=== PATIENT | male | born 1950 | race Caucasian/White ===

== ENCOUNTER 2025-01-07 11:03 | Day surgery (SDC) | payer MEDICARE, BC ==
[2025-01-06 10:45] LABS: MEAN PLATELET VOLUME 9.7 FL (7.4-10.4); RED CELL DISTRIBUTION WIDTH 12.7 % (11.5-14.5)
[2025-01-06 11:02] LABS: APTT 24 SECONDS (22-32); INR 1.0 INR
[2025-01-06 11:04] LABS: CHOL/HDL RATIO 3.6 (0.00-4.99); CREATININE 1.43 MG/DL (0.60-1.10); LDL CHOLESTEROL 141 MG/DL (50-100); TOTAL CARBON DIOXIDE 30.0 MMOL/L (24-32); eGFR 48 ML/MIN
[2025-01-06 11:51] LABS: EOSINOPHILS % (MANUAL) 7.0 % (0-6); LYMPHOCYTES % (MANUAL) 25.0 % (21-51); MONOCYTES % (MANUAL) 14.0 % (2-12); NEUTROPHILS % (MANUAL) 54.0 % (42-75); PLATELET ESTIMATE NORMAL
[~2025-01-07] VITALS: Ht 182.9 cm; Wt 79.0 kg
[2025-01-07] VITALS (9 sets, daily range): BP systolic 104–147; BP diastolic 51–74; PULSE 60–93; RESP 11–16; TEMP 98.3; O2SAT 95–100
--- NOTE | 2025-01-07 11:49 | ELECTROCARDIOGRAPH REPORT ---
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 MAY Giraldo Measurements Intervals [place] Rate: 80 P: 74 GA: 166 QRS: 91 QRSD: 101 T: 22 QT: 380 QTc: 439 Interpretive Statements Sinus rhythm Right axis deviation RSR' in V1 or V2, probably normal variant Minimal ST depression, inferior leads Electronically Signed On 01-07-2025 12:59:[address] MAY Giraldo Please click the below link to view image of tracing.
[2025-01-07] MEDS ORDERED: ASPI-280 PO (11:52)
[2025-01-07] MEDS ORDERED: METO25TA6 PO (11:52)
[2025-01-07] MEDS ORDERED: ALBU18HF2 INH (11:52)
[2025-01-07] MEDS ORDERED: verapamil 2.5 mg/ml inj IV ONE (13:24)
[2025-01-07] MEDS ORDERED: LIDOcaine 1% (10mg/ml) 2ml vial ONE (13:24)
[2025-01-07] MEDS ORDERED: heparin 1,000unit/ml 10ml vial 10 ML ONE (13:24)
[2025-01-07] MEDS ORDERED: midazolam 1 mg/ML 2ml injection ONE (13:24)
[2025-01-07] MEDS ORDERED: fentaNYL/PF 50MCG/1 ML 2ML syringe ONE (13:24)
[2025-01-07] MEDS ORDERED: nitroGLYCERIN 500mcg/5mL D5W 5 ML IV ONE (13:29)
[2025-01-07] MEDS ORDERED: HYDROcodone/acetaminophen 10/325mg tab PO PRN (14:45)
[2025-01-07] MEDS ORDERED: HYDROcodone/acetaminophen 5mg/325mg tablet PO PRN (14:45)
--- NOTE | 2025-01-07 15:09 | CARDIAC CATH REPORT ---
Cardiac Cath Report Providers to CC CC: EMILIA FERNANDO MD Procedure Comments: 1. Left Heart Catheterization 2. Selective Coronary Angiography 3. Right Radial Artery Access Brief History/Indications: 74yo man with HTN, HLD, Moderate Aortic Stenosis with increased episodes of CP/SOB, found to have inferior ischemia referred for evaluation. Techniques: After informed consent was obtained, the patient was brought to the cardiac catheterization laboratory and prepped and draped in usual sterile fashion for left heart catheterization and other procedures mentioned above. The right wrist was anesthetized with 1% Lidocaine and the right radial artery accessed via the Seldinger technique after which a 6Fr sheath was placed. Through this a TIG was used to engage the left ventricle, the left coronary artery, and the right coronary artery. At the conclusion of the case the sheath was removed and hemostasis obtained with a VascBand. Findings Findings: HEMODYNAMICS: LV: 148/- mmHg LVEDP: 8 mmHg Ao: 112/67, MAP 85 mmHg CORONARY ARTERIES: Rt Dominant LMCA: Distal 30% stenosis LAD: 80% mid-LAD stenosis. D1: 95% mid stenosis D2: 90% ostial stenosis LCx: 30% stenosis OM1: 80% mid stenosis RCA: 60% proximal stenosis, 95% mid-distal stenosis. Distal vessel fills antegrade and via Lt-Rt collaterals PDA: Luminal Irregularities PL: Luminal Irregularities Results Results: 1. Severe [place]-vessel CAD with 80% mid LAD, D1/D2, OM1, and RCA Disease. 2. Moderate aortic stenosis, peak-peak gradient of 36mmHg 3. RRA Access, closed with VascBand RECOMMENDATIONS: 1. CT Surgery consultation given multi-vessel CAD with moderate aortic stenosis 2. Recommend uptitration of max-tolerated GDMT OZZY FERNANDO MD Jan 07, 2025 15:09
--- NOTE | 2025-01-07 16:41 | CONSULTATION REPORT ---
Consult Providers to CC ~ History of Present Illness Primary Medical Doctor: Dr. Fox oDbson Reason for Admit\Complaint: Aortic stenosis with severe three-vessel coronary disease History of Present Illness Mr. Medina is a very nice 74-year-old gentleman who has noticed a several year history of increasing fatigue as well as some exertional dyspnea. He has a history of pulmonary disease which she attributed the symptoms. He however was noted by his primary care physician have a relatively harsh systolic flow murmur. He was evaluated with echocardiography which showed moderately severe aortic stenosis. Subsequent stress testing revealed an inferior defect. He therefore underwent left heart catheterization today. This revealed severe three-vessel coronary disease including 80% mid LAD, significant proximal diagonal disease an 80% obtuse marginal as well as a 95% mid RCA lesion. This factors include hyperlipidemia. He is a nonsmoker and has no history of diabetes. No family history of premature atherosclerosis. Allergies: Coded Allergies: No Known Allergies (Unverified , 01/07/25) Home Medications Home Medications Active Reported Metoprolol Tartrate 25 Mg Tablet 1 Tab PO Q12H Ventolin Hfa (Albuterol Sulfate) 90 Mcg Hfa.aer.ad 1 Puffs INH Q4HPRN PRN Aspirin 81 Mg Tab.chew 1 Tab PO DAILY Past Medical History Past Medical History Be admitted for COPD grade 3 chronic kidney disease thrombocytopenia as well as neutropenia. ROS ROS Generally he has some malaise but denies anorexia, jaundice, pruritus, fever, chills or weight loss. GI has had no nausea or vomiting, diarrhea, constipation, melena or bright red per rectum. he denies dysuria, pyuria, hematuria, urgency, hesitancy or frequency. Neuromuscular denies frequent or severe headaches. He has had no change in his visual thurman. He denies difficulty with speech, swallowing, ambulation or coordination. Cardiopulmonary is as noted in the history present illness. Exam Vitals: Vital Signs Date Time Temp Pulse Resp B/P (MAP) Pulse Ox O2 Delivery O2 Flow Rate FiO2 01/07/25 15:30 61 12 106/53 98 Room Air 01/07/25 11:30 98.3 General: Very pleasant gentleman who appears to be younger than his stated age. He is in no distress. HEENT: Normocephalic and atraumatic. Pupils round and reactive to light. Dentition is in good repair. No facial asymmetry. Neck: Supple with a midline trachea. Carotid pulses 2+ with bilaterally transmitted murmurs. No JVD lying at 30 Chest: Normal AP diameter. Occasional dry crackles at the bases. Good expansion bilaterally. No wheezing. Cardiovascular: Regular rate and rhythm with a grade 3/6 somewhat high-pitched systolic flow murmur at the left sternal border. S2 is single. No rubs present Abdomen: Soft nontender normoactive bowel sounds. No masses or organomegaly noted. Murmur heard in the epigastrium. Extremities: No evidence of cyanosis, clubbing or edema. 2+ left radial and posterior tibials bilaterally. Right radial with compression dressing. Adequate capillary refill in the hands and feet bilaterally. Diagnostic Data Last Recorded Lab Results: 01/06/25 1035 01/06/25 1035 Diagnostic Data: Laboratory Tests Test 01/06/25 10:35 Prothrombin Time 10.6 SECONDS (9.0-12.0) INR International Normalized Ratio 1.0 INR Activated Partial Thromboplast Time 24 SECONDS (22-32) Coagulation Comments Additional Plan Mr. Medina is a very nice 74-year-old gentleman who has significant aortic stenosis as well as severe three-vessel coronary disease. We have recommended that he undergo coronary artery bypass grafting and aortic valve replacement with a bioprosthesis. The indications alternatives to surgery as well as the risks, benefits and possible complications associated have been discussed at some length with the patient. He states he understands and accepts these and requested that we proceed. All of his questions have been answered to his stated satisfaction. We would like to obtain preoperative CT scanning as well as pulmonary function tests. We will tentatively plan surgery for mid January. ADINA TABARES III, MD Jan 07, 2025 16:41
== END 2025-01-07 17:24 | disposition home or self-care (01) ==
LOC: SSTAY O 11:03
PROVIDERS: ATTEND Student in an Organized Health Care Education/Training Program
DX: I35.0 Nonrheumatic aortic (valve) stenosis (principal); I25.10 Atherosclerotic heart disease of native coronary artery without angina pectoris; E78.00 Pure hypercholesterolemia, unspecified; N18.30 Chronic kidney disease, stage 3 unspecified; J44.9 Chronic obstructive pulmonary disease, unspecified; Z79.82 Long term (current) use of aspirin; Z79.899 Other long term (current) drug therapy; Z88.8 Allergy status to other drugs, medicaments and biological substances
CPT/HCPCS: 36415; 80048; 80061; 85025; 85610; 85730; 93005; 93458; 99152; A6258; A6402; C1894; J1644; J2003; J2250; J3010; J3490; J7030; Q0163; Q9967; Z7610; 85007; 99153; A6449

== ENCOUNTER 2025-02-04 05:31 | Inpatient (IN) | payer MEDICARE, BC ==
--- NOTE | 2025-01-31 14:33 | ELECTROCARDIOGRAPH REPORT ---
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 MAY Giraldo Measurements Intervals [place] Rate: 83 P: 74 MN: 161 QRS: 90 QRSD: 102 T: 43 QT: 361 QTc: 425 Interpretive Statements Sinus rhythm Probable left atrial enlargement Borderline right axis deviation RSR' in V1 or V2, probably normal variant Borderline ST depression, diffuse leads Electronically Signed On 01-31-2025 17:40:[address] MAY Giraldo Please click the below link to view image of tracing.
[2025-01-31 15:27] LABS: LEUKOCYTE ESTERASE ,URINE NEGATIVE (Neg); NITRITES, URINE NEGATIVE (Neg); OCCULT BLOOD,URINE NEGATIVE (Neg)
[2025-01-31 15:33] LABS: UA COLLECTION TYPE NON-SPECIFIED
[2025-01-31 15:34] LABS: AMORPHOUS PHOSPHATES 2+
[2025-01-31 15:35] LABS: SQUAMOUS EPITHELIAL CELL,UR FEW /LPF (FEW)
[2025-01-31 16:07] LABS: MEAN PLATELET VOLUME 10.1 FL (7.4-10.4); PRE OP HEMATOCRIT 40.8 % (42.0-52.0); PRE OP HEMOGLOBIN 14.0 g/dL (14.0-17.9); PRE OP PLATELET COUNT 148 X10'3 (140-440); PRE OP WHITE BLOOD COUNT 6.8 10'3 (4.8-10.8); RED CELL DISTRIBUTION WIDTH 13.0 % (11.5-14.5)
[2025-01-31 16:24] LABS: PRE OP INR 1.0 INR; PRE OP PARTIAL THROMB. TIME 24.0 SECONDS (22-32); PRE OP PROTIME 10.3 SECONDS (9.0-12.0)
[2025-01-31 16:25] LABS: CREATININE 1.45 MG/DL (0.60-1.10); PRE OP ANION GAP 5 (8-16); PRE OP AST 54 U/L (10-37); PRE OP BILIRUB, TOTAL 0.4 MG/DL (0.0-1.0); PRE OP GLUCOSE 103 MG/DL (70-104); PRE OP POTASSIUM 4.3 MMOL/L (3.4-5.1); PRE OP SODIUM 142 MMOL/L (135-145); TOTAL CARBON DIOXIDE 29.8 MMOL/L (24-32); eGFR 47 ML/MIN
[2025-01-31 16:36] LABS: PRE OP ALT 103 U/L (30-65)
--- NOTE | 2025-01-31 18:06 | VASCULAR REPORT ---
CLINICAL HISTORY: Greater saphenous vein mapping preoperative CABG TECHNIQUE: Color and duplex doppler imaging of the bilateral lower extremity greater saphenous veins was performed. Vessel compression if possible was also performed. WID: COMPARISON: None FINDINGS: Right greater saphenous vein: Referral nonocclusive thrombus in the mid calf greater saphenous vein. Proximal thigh: 2.8 mm Mid thigh: 2.1 mm Distal thigh: 2.1 mm Proximal Calf: 1.8 mm Mid calf: 1.8 mm Distal calf: 1.8 mm Left greater saphenous vein: Proximal thigh: 2.6 mm Mid thigh: 2.6 mm Distal thigh: 2.1 mm Proximal Calf: 1.7 mm Mid calf: 1.9 mm Distal calf: 1.7 mm IMPRESSION: 1. Chronic nonocclusive peripheral thrombus in the mid calf greater saphenous vein on the right. 2. Otherwise patent bilateral greater saphenous veins, mapped and measured as above. 3. Of note small caliber of the greater saphenous veins in the bilateral calves, measuring less than 2 mm.
--- NOTE | 2025-01-31 18:08 | VASCULAR REPORT ---
INDICATION: Preoperative TECHNIQUE: Real-time ultrasound images of the neck vessels with cota-scale, color and wave Doppler were obtained. COMPARISON: None FINDINGS: There is moderate atherosclerotic plaque bilaterally. The following peak systolic velocities were recorded in cm/sec: Right internal carotid: 144 Right common carotid: 139 Right external carotid: 137 Right internal/common carotid ratio: 1.2 Left internal carotid: 189 Left common carotid: 173 Left external carotid: 148 Left internal/common carotid ratio: 1.4 Right vertebral artery: Patent with normal antegrade direction of flow. Left vertebral artery: Patent with normal antegrade direction of flow. IMPRESSION: Approximately 50-69% stenosis of the bilateral internal carotid arteries by velocity criteria. This is more pronounced in the left internal carotid artery.
--- NOTE | 2025-01-31 20:32 | RADIOLOGY REPORT ---
EXAM: DI CHEST,TWO VIEWS CLINICAL HISTORY: PREOP TECHNIQUE: PA and lateral views of the chest WID: COMPARISON: None FINDINGS: Lines and tubes: None Chest: The heart size and pulmonary vasculature is within normal limits. No pleural effusion, pneumothorax, or consolidation. Biapical pleural- parenchymal scarring. The osseous structures are grossly intact. IMPRESSION: 1. No acute cardiopulmonary abnormality.
[2025-02-01 14:37] LABS: ABG BASE EXCESS 2.8 mmol/L (-2.0-3.0); ABG HCO3 26.9 mmol/L (21.0-28.0); ABG OXYGEN SATURATION 98.0 % (94.0-98.0); ABG PCO2 (T) 39.4 mmHg (35.0-48.0); ABG PH (T) 7.452 (7.350-7.450); ABG PO2 (T) 94.0 mmHg (83.0-108.0); ALLEN'S TEST POSITIVE; FCOHb 1.0 % (0.5-1.5); FHHb 2.0 % (0.0-5.0); FIO2 21.0 mmHg/%; FMetHb 0.3 % (0.0-1.5); FO2Hb 96.7 % (94.0-98.0); MODE ROOM AIR; PATIENT TEMPERATURE 37.0; TOTAL HEMOGLOBIN 14.0 G/dl (13.5-17.5)
--- NOTE | 2025-02-02 11:45 | PROCEDURE NOTE - Respiratory ---
Procedure Note-Respiratory Providers to CC Copies To 1: ADINA TABARES III, MD Procedure Name: This is a spirometry study dated January 31, 2025. There was also a room air blood gas obtained from this patient on the same date. Spirometry measurements: Both the forced vital capacity and the FEV1 are in the normal range. The FEV1 ratio is slightly diminished. Some of the flow rate measurements are borderline diminished. Bronchodilator was not administered as part of the study. Overall conclusion: Normal or very near normal screening spirometry. We have no previous studies for comparison. A blood gas was drawn from this patient while the patient was breathing ambient air. The blood pH is normal. The pCO2 is normal. The room air PO2 is normal at 94 mmHg. KAMILLA RIVERS MD Feb 02, 2025 11:45
[2025-02-04] VITALS (23 sets, daily range): BP systolic 80–154; BP diastolic 36–81; PULSE 67–99; RESP 8–28; TEMP 97.8–97.9; O2SAT 96–100
[~2025-02-04] VITALS: Ht 182.9 cm; Wt 78.5 kg
[~2025-02-04 05:31] MED LIST: ALBU18HF2 INH; Insulin Reg/NS 100units/100mL 100 ML IV SCH; METO25TA6 PO; MULT-1085 PO; albuterol 2.5 MG/3 ML nebule NEB PRN; dextrose 50%-water 50ml dispensing syringe IV PRN; insulin glargine (Lantus) pen - multi-dose SQ PRN; midazolam 1 mg/ML 2ml injection IV PRN
[2025-02-04] MEDS: metoprolol tartrate 12.5mg (1/2 tablet) PO ONE (06:00)
[2025-02-04] MEDS: VANCOMYCIN/H2O 1.5g/300mL PB 300 ML IV ONE (06:00)
[2025-02-04] MEDS: ringers solution, lacted 1,000 ML IV SCH (06:00)
[2025-02-04] MEDS: ceFAZolin 2gm/dext,iso 50mL 50 ML IV ONE (06:01)
[2025-02-04] MEDS: mupirocin 2% nasal ointment 1gm UD NS ONE (06:02)
[2025-02-04] MEDS: DOCUMENT DATE & TIME OF BETA-BLOCKER PO ONE (06:29)
[2025-02-04] MEDS ORDERED: vancomycin 1,000mg inj ONE (07:01)
[2025-02-04] MEDS ORDERED: heparin 10,000 units/1 ML INJ ONE ×2 (07:01→08:51)
[2025-02-04] MEDS ORDERED: BUPIVAcaine 0.5% inj/PF 30 ML ONE (07:02)
[2025-02-04] MEDS ORDERED: SUfentanil 50mcg/ml 1ml amp IV ONE (08:06)
[2025-02-04] MEDS ORDERED: rocuronium 10mg/ml inj IV ONE ×2 (08:08→12:12)
[2025-02-04] MEDS ORDERED: albuterol 2.5 MG/3 ML nebule NEB PRN (08:15)
[2025-02-04] MEDS ORDERED: midazolam 1 mg/ML 2ml injection ONE (08:16)
[2025-02-04] MEDS ORDERED: LIDOcaine 2% (20mg/ml) 5ml vial ONE (08:35)
[2025-02-04] MEDS ORDERED: propofol inj 20 ML IV ONE (08:35)
[2025-02-04 08:44] LABS: ABG BASE EXCESS -1.1 mmol/L (-2.0-3.0); ABG HCO3 22.7 mmol/L (21.0-28.0); ABG OXYGEN SATURATION 99.2 % (94.0-98.0); ABG PCO2 35.2 mmHg (35.0-48.0); ABG PH 7.428 (7.350-7.450); ABG PO2 269.2 mmHg (83.0-108.0); CL (ABG) 106 mmol/L (98-107); FCOHb 0.3 % (0.5-1.5); FHHb 0.8 % (0.0-5.0); FMetHb 0.2 % (0.0-1.5); FO2Hb 98.7 % (94.0-98.0); GLUCOSE (ABG) 107 mg/dl (65-95); IONIZED CA (ABG) 1.15 mmol/L (1.15-1.33); K (ABG) 4.5 mmol/L (3.40-4.50); TOTAL HEMOGLOBIN 12.5 G/dl (13.5-17.5)
[2025-02-04] MEDS ORDERED: mannitol 12.5gm/50mL VIAL IV ONE (08:51)
[2025-02-04] MEDS ORDERED: heparin 1,000 units/ml 10ml inj ONE (08:51)
[2025-02-04] MEDS ORDERED: calcium chloride 100 MG/1 ML inj IV ONE (08:51)
[2025-02-04] MEDS ORDERED: sodium bicarbonate (8.4%) 1 mEq/ml syringe ONE (08:51)
[2025-02-04] MEDS ORDERED: MAGNESIUM SULFATE 4 MEQ/ML (5gm/10ml) injection ONE (08:51)
[2025-02-04] MEDS ORDERED: NORepinephrine 1 mg/ml inj IV ONE (08:51)
[2025-02-04] MEDS ORDERED: potassium Cl 2 mEq/ml inj IV ONE (08:51)
[2025-02-04] MEDS ORDERED: methylPREDNISolone sod succ 1,000 MG/16 ML VIAL ONE (08:51)
[2025-02-04] MEDS ORDERED: DOBUTamine/D5W 500mg/250ml premix IV ONE (08:51)
[2025-02-04] MEDS ORDERED: aminocaproic acid 250 MG/1 ML inj. ONE (08:51)
[2025-02-04] MEDS ORDERED: nitroGLYCERIN in D5W 50mg/250ml (Tridil) infusion IV ONE (08:51)
[2025-02-04] MEDS ORDERED: LIDOcaine 2% (20 mg/ml) 5ml cardiac syringe ONE (08:51)
[2025-02-04] MEDS ORDERED: albumin (human) 25% 100 ML IV solution IV ONE (08:51)
[2025-02-04] MEDS ORDERED: isoflurane 100ml inhalation liquid IH ONE (08:51)
[2025-02-04 09:40] LABS: ABG BASE EXCESS -3.7 mmol/L (-2.0-3.0); ABG HCO3 20.6 mmol/L (21.0-28.0); ABG OXYGEN SATURATION 99.3 % (94.0-98.0); ABG PCO2 34.7 mmHg (35.0-48.0); ABG PH 7.391 (7.350-7.450); ABG PO2 263.1 mmHg (83.0-108.0); CL (ABG) 105 mmol/L (98-107); FCOHb 0.0 % (0.5-1.5); FHHb 0.7 % (0.0-5.0); FMetHb 0.1 % (0.0-1.5); FO2Hb 99.2 % (94.0-98.0); GLUCOSE (ABG) 110 mg/dl (65-95); IONIZED CA (ABG) 1.13 mmol/L (1.15-1.33); K (ABG) 4.9 mmol/L (3.40-4.50); TOTAL HEMOGLOBIN 12.0 G/dl (13.5-17.5)
[2025-02-04 09:48] LABS: ACTIVATED CLOTTING TIME 554.0 SEC (101-148)
[2025-02-04 09:56] LABS: ABG BASE EXCESS VENOUS -0.1 mmol/L (-2.0-3.0); ABG HCO3 VENOUS 24.6 mmol/L (22.0-29.0); ABG OXYGEN SATURATION VENOUS 74.0 % (60.0-85.0); ABG PCO2 VENOUS 39.9 mmHg (38.0-54.0); ABG PH (VENOUS) 7.407 (7.320-7.430); ABG PO2 VENOUS 36.3 mmHg (23.0-48.0); CL (ABG) 100 mmol/L (98-107); FCOHb VENOUS 0.3 % (0.5-1.5); FHHb VENOUS 25.8 %; FMetHb VENOUS 0.3 % (0.5-1.5); FO2Hb VENOUS 73.6 % (0-80.0); GLUCOSE (ABG) 99 mg/dl (65-95); IONIZED CA (ABG) 0.87 mmol/L (1.15-1.33); K (ABG) 4.9 mmol/L (3.40-4.50); TOTAL HEMOGLOBIN 7.7 G/dl (13.5-17.5)
[2025-02-04 09:59] LABS: ABG BASE EXCESS -0.1 mmol/L (-2.0-3.0); ABG HCO3 23.9 mmol/L (21.0-28.0); ABG OXYGEN SATURATION 99.2 % (94.0-98.0); ABG PCO2 35.9 mmHg (35.0-48.0); ABG PH 7.442 (7.350-7.450); CL (ABG) 101 mmol/L (98-107); FCOHb 0.2 % (0.5-1.5); FHHb 0.8 % (0.0-5.0); FMetHb 0.3 % (0.0-1.5); FO2Hb 98.7 % (94.0-98.0); GLUCOSE (ABG) 101 mg/dl (65-95); IONIZED CA (ABG) 0.91 mmol/L (1.15-1.33); K (ABG) 5.0 mmol/L (3.40-4.50); TOTAL HEMOGLOBIN 7.8 G/dl (13.5-17.5)
[2025-02-04 10:31] LABS: ABG BASE EXCESS -1.3 mmol/L (-2.0-3.0); ABG HCO3 23.0 mmol/L (21.0-28.0); ABG OXYGEN SATURATION 99.1 % (94.0-98.0); ABG PCO2 36.8 mmHg (35.0-48.0); ABG PH 7.414 (7.350-7.450); CL (ABG) 103 mmol/L (98-107); FCOHb 0.3 % (0.5-1.5); FHHb 0.9 % (0.0-5.0); FMetHb 0.0 % (0.0-1.5); FO2Hb 98.8 % (94.0-98.0); GLUCOSE (ABG) 98 mg/dl (65-95); IONIZED CA (ABG) 1.01 mmol/L (1.15-1.33); K (ABG) 5.6 mmol/L (3.40-4.50); TOTAL HEMOGLOBIN 9.3 G/dl (13.5-17.5)
[2025-02-04 10:53] LABS: ABG BASE EXCESS -1.5 mmol/L (-2.0-3.0); ABG HCO3 22.8 mmol/L (21.0-28.0); ABG OXYGEN SATURATION 99.3 % (94.0-98.0); ABG PCO2 36.5 mmHg (35.0-48.0); ABG PH 7.413 (7.350-7.450); CL (ABG) 103 mmol/L (98-107); FCOHb 0.3 % (0.5-1.5); FHHb 0.7 % (0.0-5.0); FMetHb 0.0 % (0.0-1.5); FO2Hb 99.0 % (94.0-98.0); GLUCOSE (ABG) 98 mg/dl (65-95); IONIZED CA (ABG) 1.01 mmol/L (1.15-1.33); TOTAL HEMOGLOBIN 9.0 G/dl (13.5-17.5)
[2025-02-04 11:04] LABS: ACTIVATED CLOTTING TIME 584.0 SEC (101-148)
[2025-02-04 11:12] LABS: ABG BASE EXCESS 0.6 mmol/L (-2.0-3.0); ABG HCO3 24.7 mmol/L (21.0-28.0); ABG OXYGEN SATURATION 99.2 % (94.0-98.0); ABG PCO2 37.6 mmHg (35.0-48.0); ABG PH 7.436 (7.350-7.450); CL (ABG) 101 mmol/L (98-107); FCOHb 0.3 % (0.5-1.5); FHHb 0.8 % (0.0-5.0); FMetHb 0.1 % (0.0-1.5); FO2Hb 98.8 % (94.0-98.0); GLUCOSE (ABG) 97 mg/dl (65-95); IONIZED CA (ABG) 0.97 mmol/L (1.15-1.33); K (ABG) 5.9 mmol/L (3.40-4.50); TOTAL HEMOGLOBIN 7.9 G/dl (13.5-17.5)
[2025-02-04 11:27] LABS: ABG BASE EXCESS 0.2 mmol/L (-2.0-3.0); ABG HCO3 25.1 mmol/L (21.0-28.0); ABG OXYGEN SATURATION 99.1 % (94.0-98.0); ABG PCO2 41.4 mmHg (35.0-48.0); ABG PH 7.400 (7.350-7.450); ABG PO2 260.9 mmHg (83.0-108.0); CL (ABG) 103 mmol/L (98-107); FCOHb 0.4 % (0.5-1.5); FHHb 0.9 % (0.0-5.0); FMetHb 0.1 % (0.0-1.5); FO2Hb 98.6 % (94.0-98.0); GLUCOSE (ABG) 110 mg/dl (65-95); IONIZED CA (ABG) 1.00 mmol/L (1.15-1.33); TOTAL HEMOGLOBIN 8.1 G/dl (13.5-17.5)
[2025-02-04 11:33] LABS: ABG BASE EXCESS 4.6 mmol/L (-2.0-3.0); ABG HCO3 28.9 mmol/L (21.0-28.0); ABG OXYGEN SATURATION 99.3 % (94.0-98.0); ABG PCO2 41.5 mmHg (35.0-48.0); ABG PH 7.460 (7.350-7.450); ABG PO2 274.1 mmHg (83.0-108.0); CL (ABG) 103 mmol/L (98-107); FCOHb 0.7 % (0.5-1.5); FHHb 0.7 % (0.0-5.0); FMetHb 0.1 % (0.0-1.5); FO2Hb 98.5 % (94.0-98.0); GLUCOSE (ABG) 107 mg/dl (65-95); IONIZED CA (ABG) 1.35 mmol/L (1.15-1.33); K (ABG) 5.8 mmol/L (3.40-4.50); TOTAL HEMOGLOBIN 7.9 G/dl (13.5-17.5)
[2025-02-04 11:39] LABS: ABG BASE EXCESS 3.2 mmol/L (-2.0-3.0); ABG HCO3 27.7 mmol/L (21.0-28.0); ABG OXYGEN SATURATION 99.4 % (94.0-98.0); ABG PCO2 41.7 mmHg (35.0-48.0); ABG PH 7.440 (7.350-7.450); CL (ABG) 103 mmol/L (98-107); FCOHb 0.6 % (0.5-1.5); FHHb 0.6 % (0.0-5.0); FMetHb 0.2 % (0.0-1.5); FO2Hb 98.6 % (94.0-98.0); GLUCOSE (ABG) 105 mg/dl (65-95); IONIZED CA (ABG) 1.24 mmol/L (1.15-1.33); K (ABG) 5.5 mmol/L (3.40-4.50); TOTAL HEMOGLOBIN 8.0 G/dl (13.5-17.5)
[2025-02-04 11:49] LABS: ACTIVATED CLOTTING TIME 549.0 SEC (101-148)
[2025-02-04 12:05] LABS: ABG BASE EXCESS 0.1 mmol/L (-2.0-3.0); ABG HCO3 24.0 mmol/L (21.0-28.0); ABG OXYGEN SATURATION 99.4 % (94.0-98.0); ABG PCO2 35.3 mmHg (35.0-48.0); ABG PH 7.450 (7.350-7.450); CL (ABG) 103 mmol/L (98-107); FCOHb 0.4 % (0.5-1.5); FHHb 0.6 % (0.0-5.0); FMetHb 0.2 % (0.0-1.5); FO2Hb 98.8 % (94.0-98.0); GLUCOSE (ABG) 183 mg/dl (65-95); IONIZED CA (ABG) 1.15 mmol/L (1.15-1.33); K (ABG) 4.5 mmol/L (3.40-4.50); TOTAL HEMOGLOBIN 7.8 G/dl (13.5-17.5)
[2025-02-04 12:08] LABS: ACTIVATED CLOTTING TIME 122 SEC (101-148)
[2025-02-04] MEDS ORDERED: morphine 10mg/ml inj. ONE (12:12)
[2025-02-04] MEDS ORDERED: dextrose 50%-water 50ml dispensing syringe IV ONE (12:15)
[2025-02-04] MEDS ORDERED: potassium Cl 40MEQ/270ML bag 250 ML IV PRN (12:20)
[2025-02-04] MEDS ORDERED: metoclopramide 5 mg/ml inj IV PRN (12:20)
[2025-02-04] MEDS ORDERED: ondansetron/PF 4mg/2ml inj IV PRN (12:20)
[2025-02-04] MEDS ORDERED: magnesium sulf-water 4G/100mL 100 ML IV PRN (12:20)
[2025-02-04] MEDS ORDERED: potassium Cl 20 mEq SR tablet PO PRN (12:20)
[2025-02-04] MEDS ORDERED: insulin glargine (Lantus) pen - multi-dose SQ PRN (12:20)
[2025-02-04] MEDS ORDERED: niCARDipine-NS 40mg/200ml IVPB 200 ML IV PRN (12:20)
[2025-02-04] MEDS ORDERED: mineral oil 133ml enema RC PRN (12:20)
[2025-02-04] MEDS ORDERED: potassium CL 10mEq/100ml bag 100 ML IV PRN (12:20)
[2025-02-04] MEDS ORDERED: dextrose 50%-water 50ml dispensing syringe IV PRN (12:20)
[2025-02-04] MEDS ORDERED: sodium phos 15mmol/D5 255mL 255 ML IV PRN (12:20)
[2025-02-04] MEDS ORDERED: morphine 4 MG/ML inj SYRINge IV PRN (12:20)
[2025-02-04] MEDS ORDERED: bisacodyl 10mg suppository rectal RC PRN (12:20)
[2025-02-04] MEDS ORDERED: potassium Cl 40MEQ/1/2NS 520ml 520 ML IV PRN (12:20)
[2025-02-04 13:00] LABS: ABG BASE EXCESS 0.2 mmol/L (-2.0-3.0); ABG HCO3 25.2 mmol/L (21.0-28.0); ABG OXYGEN SATURATION 99.6 % (94.0-98.0); ABG PCO2 (T) 41.4 mmHg (35.0-48.0); ABG PH (T) 7.400 (7.350-7.450); ABG PO2 (T) 342.6 mmHg (83.0-108.0); FCOHb 0.5 % (0.5-1.5); FHHb 0.4 % (0.0-5.0); FIO2 80.0 mmHg/%; FMetHb 0.3 % (0.0-1.5); FO2Hb 98.8 % (94.0-98.0); MODE VENT - SIMV; PATIENT TEMPERATURE 36.4; PEEP 5 cm H2O; RESPIRATORY RATE 12 b/min; TIDAL VOLUME 500 mL; TOTAL HEMOGLOBIN 10.7 G/dl (13.5-17.5)
[2025-02-04 13:03] LABS: MEAN PLATELET VOLUME 10.4 FL (7.4-10.4); RED CELL DISTRIBUTION WIDTH 12.8 % (11.5-14.5)
--- NOTE | 2025-02-04 13:03 | ELECTROCARDIOGRAPH REPORT ---
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 MAY Giraldo Measurements Intervals [place] Rate: 71 P: 73 AR: 175 QRS: 102 QRSD: 118 T: 31 QT: 439 QTc: 478 Interpretive Statements Sinus rhythm Nonspecific intraventricular conduction delay Minimal ST depression, inferior leads Electronically Signed On 02-04-2025 20:55:[address] MAY Giraldo Please click the below link to view image of tracing.
--- NOTE | 2025-02-04 13:12 | RADIOLOGY REPORT ---
CHEST RADIOGRAPH Indication: POST OP Technique: Single frontal view of the chest was obtained COMPARISON: DI CHEST,TWO VIEWS on DOS: 01/31/25 FINDINGS: Lines and Tubes: Endotracheal tube, enteric catheter, [place]-Jasmina catheter and right central venous catheter in satisfactory position. Mediastinal drain and left chest tubes in satisfactory position. Lungs: Bibasilar subsegmental atelectasis. Pleura: No effusion. No pneumothorax. Cardiomediastinal contours: Post median sternotomy. Cardiac valve replacement. Bones: Unremarkable IMPRESSION: Lines and tubes in satisfactory position. No significant interval change.
[2025-02-04 13:28] LABS: ABG PO2 420.3 mmHg (83.0-108.0)
[2025-02-04 13:34] LABS: ACT @ 1.70 U 262 SEC (193-297); ACT @ 2.84 U 343 SEC (260-420); BASELINE ACT 131 SEC (101-148); PATIENT WEIGHT 77.0k KG
--- NOTE | 2025-02-04 13:39 | OPERATIVE REPORT ---
Operative Report Operative Report Cardiovascular surgery operative report 04 February 2025 Preoperative diagnosis: Severe aortic stenosis, three-vessel coronary artery disease Postop diagnosis: Same Procedure: Aortic valve replacement with a 23 mm magna pericardial aortic valve prosthesis, coronary artery bypass grafting x3 placing the left internal mammary artery to the LAD with vein grafts to the diagonal and distal right coronary artery Surgeon: Dr. Nacho Aguirre personalized living assistant: Dr. Al Garcia and Eduard Alvarenga PA-C Anesthesia: General via endotracheal tube Complications: None EBL: 200 mL Procedure: The patient is taken to the operating room placed in supine position. Following the induction of general oral endotracheal anesthesia and the placement of appropriate lines the chest, abdomen and bilateral lower extremities were prepped and draped sterilely. A portion of greater saphenous vein was removed endoscopically from the right leg. Side branches were controlled with electrocautery. It was ligated proximally and distally and then excised. Side branches were ligated with 4-0 silk. It was set aside. Careful hemostasis was achieved throughout the tunnel. The incision was closed in two layers with absorbable suture. At the same time a median sternotomy was performed in the left pleural space was widely opened. The left internal mammary artery was dissected free from the anterior chest wall. The patient was systemically heparinized and after 3 minutes the АЛЕКСАНДР was divided the diaphragm, ligating it distally with 0 silk. The pericardium was then opened in midline and suspended. Single aortic and dual stage right atrial cannula placed. After ensuring an ACT of greater than 300 seconds cardiopulmonary bypass was instituted. The distal anastomosis with a bypasses were performed on a beating heart using an epicardial stabilizer facilitate the distal anastomosis. They we re done in end-to-side fashion with running seven 0 Prolene, probing prior to tying the suture line to ensure patency. A slit was cut in the left superior pericardium to allow the АЛЕКСАНДР to lie medial to lung without tension. Diminished urine output the АЛЕКСАНДР was cut to length and distal end was spatulated. It was then anastomosed in end-to-side fashion to the mid LAD. The bulldog clamp was removed from the АЛЕКСАНДР pedicle to restore flow. The pedicle was tacked to the epicardium with interrupted five 0 Prolene sutures. In similar fashion reverse saphenous vein grafts were anastomosed in end-to-side fashion to the diagonal and the distal right coronary artery. The aorta was then crossclamped and the heart was arrested with cold blood [place] cardioplegia delivered antegrade through the root. The aorta was opened transversely well above the right coronary orifice of the valve was inspected. It was tricuspid with significant calcification. The leaflets were then excised and the annulus was debrided free of calcium. The annulus was then sized and a 23 mm magna pericardial aortic valve prosthesis was chosen. This was rinsed per protocol. It was then implanted into the annulus using interrupted horizontal mattress sutures of pledgeted 2-0 Ethib[place], placing the pledgets on the ventricular aspect. The valve was easily seated the sutures were then tied to complete the implant. The ascending aorta was irrigated with cold saline solution. The aortotomy was then closed with a everting running 4-0 Prolene suture. The suture line was coated with a thin coating of bio glue for hemostatic purposes. Two aortotomy was then created in the ascending aorta with a 4 mm punch. This allowed the proximal anastomosis with the vein grafts to be performed. Each was done in end-to-side fashion with running six 0 Prolene. Proximal markers were placed. The patient was given 1 L of warm blood antegrade while temporary pacing wires were placed in the anterior surface of the right ventricle and right atrium. With a suction vent in the ascending aorta on high the aortic crossclamp was removed. The graft was then de-aired and flow restored to the entire coronary circulation. The patient is noted to have significant right ventricular dilatation. Therefore a incision was made in the mid main pulmonary artery and a suction vent was then placed. The patient has had multiple episodes of ventricular tachycardia which required cardioversion. He subsequently settled down into a junctional rhythm. Therefore AV pacing at a rate of 80 was begun. Ventilation was resumed. The patient was allowed to begin ejecting to a pressure of 80-90 mmHg. Transesophageal echocardiography was used to confirm adequacy of de- airing. The suction vent was removed from the pulmonary artery and the incision was closed with a pledgeted 4-0 Prolene mattress suture. The patient was weaned from cardiopulmonary bypass and decannulated in standard fashion. Protamine solution was administered to reverse heparinization and careful hemostasis was achieved throughout the mediastinum. SHAHLA showed a very small perivalvular leak in the non coronary cusp. This has not felt to be of sufficient size to be clinically important and require intervention. A 28 [place]ican Demar drain was placed with the left pleural space with the 2nd of the diaphragmatic aspect of the pericardium. A 32 [place] straight chest tube was placed anterior to the mediastinum. These were all secured to skin with 1. Silk. The chest was then closed by reapproximating the sternum in midline with interrupted wzeerd-ej-isushy of 7. Stainless steel wire and zip fix sternal bands. The midline fascia, subcutaneous tissue and skin were closed in layers. Sterile dressings were applied and the chest tube was attached to water-seal. The patient was then returned to the ICU in critical but stable condition, having tolerated the procedure satisfactorily. There were no complications. Sponge, needle and instrument counts were correct x2 at the end of the case. Eduard Alvarenga PA-C was present for and assisted throughout the entire procedure to include endoscopic vein harvesting, retraction procedure following and assistance with closing. NACHO AGUIRRE III, MD Feb 04, 2025 13:39
[2025-02-04] MEDS: Insulin Reg/NS 100units/100mL 100 ML IV SCH (13:46)
[2025-02-04] MEDS: nitroGLYCERIN-Tridil 50MG/D5W 250 ML IV SCH (13:52)
[2025-02-04] MEDS: albumin (Human) 5% 250ml 250 ML IV PRN (13:53)
[2025-02-04] MEDS: DOBUTamine-DoBUTrex 500mg/D5W 250 ML IV PRN (13:54)
[2025-02-04 14:42] LABS: APTT 38 SECONDS (22-32); INR 1.3 INR
[2025-02-04 15:15] LABS: CREATININE 1.47 MG/DL (0.60-1.10); PHOSPHORUS 1.8 MG/DL (2.3-4.5); TOTAL CARBON DIOXIDE 26.3 MMOL/L (24-32); eCRCL 47 ML/MIN; eGFR 47 ML/MIN
[2025-02-04] MEDS: potassium Cl 20mEq/100mL bag 100 ML IV PRN (16:25)
[2025-02-04] MEDS: ceFAZolin 2gm/dext,iso 50mL 50 ML IV SCH (16:25)
[2025-02-04] MEDS: magnesium sulf-water 2g/50mL 50 ML IV PRN (17:35)
[2025-02-04 19:16] LABS: MEAN PLATELET VOLUME 8.5 FL (7.4-10.4); RED CELL DISTRIBUTION WIDTH 12.8 % (11.5-14.5)
[2025-02-04 19:42] LABS: CREATININE 1.54 MG/DL (0.60-1.10); PHOSPHORUS 1.3 MG/DL (2.3-4.5); TOTAL CARBON DIOXIDE 24.4 MMOL/L (24-32); eCRCL 45 ML/MIN; eGFR 44 ML/MIN
[2025-02-04] MEDS: vancomycin/NS 1 GM ADD-VANTAGE 250 ML IV SCH (19:49)
[2025-02-04] MEDS: albumin (Human) 5% 250ml 250 ML IV ONE ×2 (19:49→23:07)
[2025-02-04] MEDS: mupirocin 2% nasal ointment 1gm UD NS SCH (19:50)
[2025-02-04] MEDS: NORepinephrine 8mg/ 250ml NS 250 ML IV PRN (19:51)
[2025-02-04 20:54] LABS: ABG BASE EXCESS -0.1 mmol/L (-2.0-3.0); ABG HCO3 24.8 mmol/L (21.0-28.0); ABG OXYGEN SATURATION 98.9 % (94.0-98.0); ABG PCO2 (T) 41.9 mmHg (35.0-48.0); ABG PH (T) 7.392 (7.350-7.450); ABG PO2 (T) 137.3 mmHg (83.0-108.0); FCOHb 1.3 % (0.5-1.5); FHHb 1.1 % (0.0-5.0); FIO2 40.0 mmHg/%; FMetHb 0.3 % (0.0-1.5); FO2Hb 97.3 % (94.0-98.0); MODE VENT - CPAP; PATIENT TEMPERATURE 37.1; PEEP 5 cm H2O; TOTAL HEMOGLOBIN 7.3 G/dl (13.5-17.5)
[2025-02-04] MEDS: SODIUM PHOSPHATE IN D5W 260 ML IV PRN (23:08)
[2025-02-05] VITALS (32 sets, daily range): BP systolic 97–139; BP diastolic 38–96; PULSE 78–90; RESP 9–24; TEMP 98.7–99.7; O2SAT 90–98
[2025-02-05 02:58] LABS: MEAN PLATELET VOLUME 9.2 FL (7.4-10.4); RED CELL DISTRIBUTION WIDTH 12.8 % (11.5-14.5)
[2025-02-05 03:53] LABS: CREATININE 1.59 MG/DL (0.60-1.10); PHOSPHORUS 4.3 MG/DL (2.3-4.5); TOTAL CARBON DIOXIDE 25.4 MMOL/L (24-32); eCRCL 43 ML/MIN; eGFR 43 ML/MIN
--- NOTE | 2025-02-05 06:12 | RADIOLOGY REPORT ---
CHEST RADIOGRAPH Indication: POST OP Technique: Single frontal view of the chest was obtained COMPARISON: DI CHEST,SINGLE VIEW on DOS: 02/04/25, DI CHEST,TWO VIEWS on DOS: 01/31/25 FINDINGS: Lines and Tubes: Median sternotomy. Right central venous catheter, [place]-Jasmina catheter, left chest tube and mediastinal tube in satisfactory position. Post cardiac valve replacement Lungs: Unchanged pulmonary vascular congestion. Pleura: No effusion. No pneumothorax. Cardiomediastinal contours: Unremarkable Bones: Unremarkable IMPRESSION: Lines and tubes in satisfactory position. No significant interval change.
[2025-02-05] MEDS: multivitamins, therapeutics tablet PO SCH (07:32)
[2025-02-05] MEDS: HYDROcodone/acetaminophen 10/325mg tab PO PRN ×2 (07:35→13:06)
[2025-02-05] MEDS: metoprolol tartrate 12.5mg (1/2 tablet) PO SCH (08:00)
[2025-02-05 08:33] LABS: MEAN PLATELET VOLUME 9.2 FL (7.4-10.4); RED CELL DISTRIBUTION WIDTH 20.1 % (11.5-14.5)
--- NOTE | 2025-02-05 12:57 | PROGRESS NOTE ---
Progress Note CV Providers to CC ~ Progress Note: POD#1 CABG/AVR Central Line/PICC still needed: Yes Central Line/Picc Necessity: Hemodynamic Monitoring [place] Indications Met/Not Met: F/C Indications Met Antibiotics Ordered?: Yes If Yes, Indications?: Surgical prophylaxis Objective Vitals Vital Signs Date Time Temp Pulse Resp B/P (MAP) Pulse Ox O2 Delivery O2 Flow Rate FiO2 02/05/25 12:15 99.7 84 14 130/41 02/05/25 11:00 92 Room Air 02/05/25 05:00 1.0 02/04/25 20:56 40 Lab Results: 02/05/25 0815 02/05/25 0205 Objective Lungs decreased at bases. Left greater than right. Cardiac exam regular rate and rhythm with a crisp S2. No rubs present. Sternal incision clean and dry. Chest tube output moderate without air leak. Coagulation Studies Laboratory Tests Test 02/04/25 08:44 02/04/25 12:04 02/04/25 14:00 Patient Sex (Coag) M Patient Height (Coag) 188cm Patient Weight (Coag) 77.0k KG Patient Blood Volume 6206 ML Pump Volume 1500 ML Total Blood Volume 7706 ML Projected Heparin Concentration 3.1 MG/KG Heparin [place] 84 Calculated Heparin Bolus 24143 UNITS Activated Coagulation Time Baseline 131 SEC (101-148) Activated Coag Time 1.70 U/mL 262 SEC (193-297) Activated Coag Time 2.84 U/mL 343 SEC (260-420) Heparin Level (COAG) 0 MG/KG Calculated Heparin Req (Hep Assay) 33308 UNITS Calculated Protamine Req (Hep Assay 0 MG Activated Clotting Time 122 SEC (101-148) Prothrombin Time 13.2 SECONDS (9.0-12.0) H INR International Normalized Ratio 1.3 INR Activated Partial Thromboplast Time 38 SECONDS (22-32) H Coagulation Comments Cardiac Rhythm: Sinus Rhythm Problem\Assessment\Plan Additional Plan Patient doing reasonably well following AVR and CABG. Being transfused for postoperative acute blood loss anemia. Also thrombocytopenic and relieving platelets. Chest tube output moderate and we will be left in. Need to mobilize and push incentive spirometry. Urine output marginal with slight rise in creatinine. May need more volume. We will reassess after transfusion. ADINA TABARES III, MD Feb 05, 2025 12:57
[2025-02-05 14:06] LABS: MEAN PLATELET VOLUME 8.6 FL (7.4-10.4); RED CELL DISTRIBUTION WIDTH 19.1 % (11.5-14.5)
--- NOTE | 2025-02-05 17:49 | RADIOLOGY REPORT ---
CLINICAL HISTORY: Left arm weakness TECHNIQUE: Helical imaging carried out from skull base to vertex without intravenous contrast. This exam was performed according to our departmental dose optimization program. Up-to-date CT equipment and radiation dose reduction techniques are utilized as appropriate. CTDIVol: 0.14+ 70.47 mGy DLP: 1399.38 mGy-cm WID: COMPARISON: None FINDINGS: Mild cerebral volume loss with concordant prominence of the subarachnoid spaces and ventricles. Chronic appearing small infarcts in the right cerebellum. There is mild patchy low attenuation in the cerebral white matter consistent with nonspecific white matter disease. Small chronic appearing lacunar infarcts in the bilateral basal ganglia. The ventricles and subarachnoid spaces are normal in size and configuration. There is no midline shift or mass effect. The cota white matter interfaces are maintained. The basal cisterns are patent. There is no evidence of acute intracranial hemorrhage or extra-axial fluid collection. The mastoid air cells and visualized paranasal sinuses are well-aerated aside from mild left maxillary sinus mucosal thickening IMPRESSION: 1. No acute intracranial abnormality. 2. Mild cerebral volume loss and mild chronic microvascular ischemic change. 3. 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
[2025-02-06] VITALS (25 sets, daily range): BP systolic 93–135; BP diastolic 36–53; PULSE 63–105; RESP 12–22; O2SAT 90–97
[2025-02-06 03:45] LABS: MEAN PLATELET VOLUME 9.2 FL (7.4-10.4); RED CELL DISTRIBUTION WIDTH 19.5 % (11.5-14.5)
[2025-02-06] MEDS: amiodarone 150mg/dext, iso-os 100 ML IV ONE ×2 (03:46→03:47)
[2025-02-06 03:56] LABS: CREATININE 1.40 MG/DL (0.60-1.10); PHOSPHORUS 3.5 MG/DL (2.3-4.5); TOTAL CARBON DIOXIDE 25.5 MMOL/L (24-32); eCRCL 49 ML/MIN; eGFR 49 ML/MIN
[2025-02-06] MEDS: amiodarone/D5 360MG/200ML BAG 200 ML IV SCH (03:57)
--- NOTE | 2025-02-06 07:22 | RADIOLOGY REPORT ---
CHEST RADIOGRAPH INDICATION: POST OP TECHNIQUE: Single frontal view of the chest was obtained. COMPARISON: DI CHEST,SINGLE VIEW on DOS: 02/05/25, DI CHEST,SINGLE VIEW on DOS: 02/04/25 FINDINGS: Median sternotomy. Interval removal of 1 of the central venous catheters. Remaining catheter terminates in the mid SVC. Persistent pulmonary vascular congestion. No significant pleural effusion. No pneumothorax. Stable cardiomediastinal silhouette. IMPRESSION: Interval removal of 1 of the central venous catheters.
[2025-02-06] MEDS: pantoprazole 40mg Tablet.DR PO SCH (09:15)
--- NOTE | 2025-02-06 09:39 | PROGRESS NOTE ---
Progress Note CV Providers to CC ~ Antibiotics Ordered?: No Subjective Subjective S/P AVR/ CABG X 3 POD # 2. He is alert, but seems a bit slow processing. Yesterday afternoon he was noted to have L hand and arm weakness. CT showed old infarcts. Pt. states he has had previous strokes but does not recall areas affected. He is currently back on Levophed for BP support given those findings. He is currently on IV Amiod for A. fib. which developed around 0300 today. Dangled yesterday but did not get OOB or stand. Objective Vitals Vital Signs Date Time Temp Pulse Resp B/P (MAP) Pulse Ox O2 Delivery O2 Flow Rate FiO2 02/06/25 08:00 83 02/06/25 06:00 99.7 15 104/40 (61) 94 Nasal Cannula 2.0 02/04/25 20:56 40 Lab Results: 02/06/25 0220 02/06/25 0220 Objective Lungs - diminished bilat bases Heart - Irreg, irreg. A. fib, rate in the 80's Abd/Extr - OK Incisions - CDI Coagulation Studies Laboratory Tests Test 02/04/25 08:44 02/04/25 12:04 02/04/25 14:00 Patient Sex (Coag) M Patient Height (Coag) 188cm Patient Weight (Coag) 77.0k KG Patient Blood Volume 6206 ML Pump Volume 1500 ML Total Blood Volume 7706 ML Projected Heparin Concentration 3.1 MG/KG Heparin [place] 84 Calculated Heparin Bolus 18865 UNITS Activated Coagulation Time Baseline 131 SEC (101-148) Activated Coag Time 1.70 U/mL 262 SEC (193-297) Activated Coag Time 2.84 U/mL 343 SEC (260-420) Heparin Level (COAG) 0 MG/KG Calculated Heparin Req (Hep Assay) 73147 UNITS Calculated Protamine Req (Hep Assay 0 MG Activated Clotting Time 122 SEC (101-148) Prothrombin Time 13.2 SECONDS (9.0-12.0) H INR International Normalized Ratio 1.3 INR Activated Partial Thromboplast Time 38 SECONDS (22-32) H Coagulation Comments Cardiac Rhythm: Sinus Rhythm Problem\Assessment\Plan Additional Plan POD # 2 L arm weakness/ paresis Head CT showed no acute findings but evidence of old infarcts. Son states that pt has had previous hx of neck problems associated with nerve problems. CT output still a bit elevated and output is dark. Keep tubes for now. Mobilize with PT. Sepsis Screening Reassessment Date: Feb 06, 2025 Supervising MD Co-signing Provider: SAIRA Ramirez Feb 06, 2025 09:39
[2025-02-06] MEDS: midodrine tablet 2.5 MG TABLET PO SCH (09:50)
[2025-02-06] MEDS: Ensure Enlive - 237ML PO SCH (13:53)
[2025-02-06] MEDS: midodrine 5mg tablet PO SCH (16:31)
[2025-02-06] MEDS: acetaminophen 1,000mg/100ml IV 100 ML IV PRN (17:24)
--- NOTE | 2025-02-06 17:48 | CARDIOLOGY REPORT ---
APPROVED REPORT EXAM: Intraoperative transesophageal echocardiogram with focused 3D imaging and color flow Doppler. Study contains both pre and post images. Patient Location: [facility] Blood Pressure: 120/60 mmHg Heart Rate: 87 bpm Rhythm: NSR Indications Aortic Stenosis CAD 23 mm Chavira Magna AVR CABG x 3 SHAHLA probe passed by Kassy Barriga MD Facilities Custodian is Nate Umaña MD ; Surgeon is Cecilia Aguirre MD No previous echo LEFT VENTRICLE PRE: LV appears normal in size with mild concentric hypertrophy. Overall systolic function appears normal. Pre LVEF is 65%. POST: Unchanged. RIGHT VENTRICLE PRE: RV appears normal in size and function. POST: Unchanged. ATRIA PRE: Incidental saline study was performed with IV injection of agitated normal saline at rest. Negative saline study for right to left flow. Left atrial appendage is visualized in multiple planes and appears normal without debris. Left upper pulmonary vein identified and isolated by 2D and color Doppler. POST: Unchanged. AORTIC VALVE PRE: Trileaflet AV appears heavily calcified with significant stenosis demonstrated by reduced excursion and increased transvalvular and ascending aorta turbulance. NADEGE: 1.1 cmsq; Pkv: 3.46 m/sec; Gradients: 48/30 mmHG. Trivial insufficiency. POST: 23 mm Chavira Magna AVR appears well seated. Peak/mean gradient of 21/12 mmHG and a peak velocity of 2.47 m/s. Mild paravalvular leak noted at 10-11 oclock PSAX SHAHLA. MITRAL VALVE PRE: Mild MV annular thickening. Moderate multi jet regurgitation by color and spectral flow Doppler with a BP of 120/60 mmHG. POST: Unchanged. TRICUSPID VALVE PRE: TV appears structurally normal with trace regurgitation by color and spectral flow Doppler. POST: Unchanged. PULMONIC VALVE PRE: Normal PV without stenosis, physiologic insufficiency by color and spectral flow Doppler. [place]-Jasmina catheter in the right heart across the pulmonic valve. POST: Unchanged. GREAT VESSELS PRE: Descending aorta is normal in caliber. POST: Unchanged. PERICARDIUM PRE: There is no pericardial effusion. POST: Unchanged. CONCLUSION PRE: LV appears normal in size with mild concentric hypertrophy. Overall systolic function appears normal. Pre LVEF is 65%. POST: Unchanged. PRE: Incidental saline study was performed with IV injection of agitated normal saline at rest. Negative saline study for right to left flow. Left atrial appendage is visualized in multiple planes and appears normal without debris. Left upper pulmonary vein identified and isolated by 2D and color Doppler. POST: Unchanged. PRE: Trileaflet AV appears heavily calcified with significant stenosis demonstrated by reduced excursion and increased transvalvular and asce nding aorta turbulance. NADEGE: 1.1 cmsq; Pkv: 3.46 m/sec; Gradients: 48/30 mmHG. Trivial insufficiency. POST: 23 mm Chavira Magna AVR appears well seated. Peak/mean gradient of 21/12 mmHG and a peak velocity of 2.47 m/s. Mild paravalvular leak noted at 10-11 oclock PSAX SHAHLA. PRE: Mild MV annular thickeni ng. Moderate multi jet regurgitation by color and spectral flow Doppler with a BP of 120/60 mmHG. POST: Unchanged. PRE: TV appears structurally normal with trace regurgitation by color and spectral flow Doppler. POST: Unchanged. PRE: Normal PV without stenosis, physiologic insufficiency by color and spectral flow Doppler. [place]-Jasmina catheter in the right heart across the pulmonic valve. POST: Unchanged. PRE: There is no pericardial effusion. POST: Unchanged. Conclusion PRE: LV appears normal in size with mild concentric hypertrophy. Overall systolic function appears normal. Pre LVEF is 65%. POST: Unchanged. PRE: Incidental saline study was performed with IV injection of agitated normal saline at rest. Negative saline study for right to left flow. Left atrial appendage is visualized in multiple planes and appears normal without debris. Left upper pulmonary vein identified and isolated by 2D and color Doppler. POST: Unchanged. PRE: Trileaflet AV appears heavily calcified with significant stenosis demonstrated by reduced excursion and increased transvalvular and ascending aorta turbulance. NADEGE: 1.1 cmsq; Pkv: 3.46 m/sec; Gradients: 48/30 mmHG. Trivial insufficiency. POST: 23 mm Chavira Magna AVR appears well seated. Peak/mean gradient of 21/12 mmHG and a peak velocity of 2.47 m/s. Mild paravalvular leak noted at 10-11 oclock PSAX SHAHLA. PRE: Mild MV annular thickening. Moderate multi jet regurgitation by color and spectral flow Doppler with a BP of 120/60 mmHG. POST: Unchanged. PRE: TV appears structurally normal with trace regurgitation by color and spectral flow Doppler. POST: Unchanged. PRE: Normal PV without stenosis, physiologic insufficiency by color and spectral flow Doppler. D[place]-Jasmina catheter in the right heart across the pulmonic valve. POST: Unchanged. PRE: There is no pericardial effusion. POST: Unchanged.
[2025-02-06] MEDS: morphine 4 MG/ML inj SYRINge IV PRN (20:18)
[2025-02-07] VITALS (19 sets, daily range): BP systolic 107–165; BP diastolic 40–57; PULSE 60–91; RESP 12–36; TEMP 98.8–100.2; O2SAT 85–97
[2025-02-07 02:17] LABS: MEAN PLATELET VOLUME 9.5 FL (7.4-10.4); RED CELL DISTRIBUTION WIDTH 18.7 % (11.5-14.5)
[2025-02-07 02:35] LABS: CREATININE 1.38 MG/DL (0.60-1.10); PHOSPHORUS 2.6 MG/DL (2.3-4.5); TOTAL CARBON DIOXIDE 28.1 MMOL/L (24-32); eCRCL 50 ML/MIN; eGFR 50 ML/MIN
--- NOTE | 2025-02-07 06:11 | RADIOLOGY REPORT ---
CHEST RADIOGRAPH Indication: POST OP Technique: Single frontal view of the chest was obtained COMPARISON: DI CHEST,SINGLE VIEW on DOS: 02/06/25, DI CHEST,SINGLE VIEW on DOS: 02/05/25, DI CHEST,SINGLE VIEW on DOS: 02/04/25, DI CHEST,TWO VIEWS on DOS: 01/31/25 FINDINGS: Lines and Tubes: Median sternotomy. Right central venous catheter in satisfactory position. Left chest tube and mediastinal drain in satisfactory position. Lungs: Mild pulmonary vascular congestion. Pleura: Small bilateral pleural effusions. No pneumothorax. Cardiomediastinal contours: Cardiac valve replacement. Bones: Unremarkable IMPRESSION: Lines and tubes in satisfactory position. No significant interval change.
--- NOTE | 2025-02-07 07:30 | PROGRESS NOTE ---
Progress Note CV Providers to CC ~ Antibiotics Ordered?: No Subjective Subjective S/P AVR/ CABG x 3 POD # 3. A couple of short episodes of A. fib otherwise SR. Slept Ok last night. PT did not work with him yesterday. Now able to move L arm and some L thumb but not moving hand much yet. Objective Vitals Vital Signs Date Time Temp Pulse Resp B/P (MAP) Pulse Ox O2 Delivery O2 Flow Rate FiO2 02/07/25 07:13 15 02/07/25 04:00 66 115/40 (65) 93 Nasal Cannula 02/07/25 03:00 99.5 02/07/25 00:00 2.0 02/06/25 20:42 28 Lab Results: 02/07/25 0201 02/07/25 0201 Objective Lungs - diminished at bases Heart - RRR, SR Abd/Extr - OK Incisions - CDI Coagulation Studies Laboratory Tests Test 02/04/25 08:44 02/04/25 12:04 02/04/25 14:00 Patient Sex (Coag) M Patient Height (Coag) 188cm Patient Weight (Coag) 77.0k KG Patient Blood Volume 6206 ML Pump Volume 1500 ML Total Blood Volume 7706 ML Projected Heparin Concentration 3.1 MG/KG Heparin [place] 84 Calculated Heparin Bolus 16553 UNITS Activated Coagulation Time Baseline 131 SEC (101-148) Activated Coag Time 1.70 U/mL 262 SEC (193-297) Activated Coag Time 2.84 U/mL 343 SEC (260-420) Heparin Level (COAG) 0 MG/KG Calculated Heparin Req (Hep Assay) 61249 UNITS Calculated Protamine Req (Hep Assay 0 MG Activated Clotting Time 122 SEC (101-148) Prothrombin Time 13.2 SECONDS (9.0-12.0) H INR International Normalized Ratio 1.3 INR Activated Partial Thromboplast Time 38 SECONDS (22-32) H Coagulation Comments Cardiac Rhythm: Sinus Rhythm Problem\Assessment\Plan Additional Plan POD # 3 SR Change Amiod to PO CT output slowing. DC CT's and PW's Mobilize DC [place] and art line. Acute blood loss anemia. H/H stable Thrombocytopenia. Monitor To PCU. Sepsis Screening Reassessment Date: Feb 07, 2025 Supervising Co-signing Provider: SAIRA Ramirez Feb 07, 2025 07:30
[2025-02-07] MEDS ORDERED: potassium Cl 20mEq/100mL bag 100 ML IV PRN (07:35)
[2025-02-07] MEDS ORDERED: potassium Cl 40MEQ/270ML bag 250 ML IV PRN (07:35)
[2025-02-07] MEDS ORDERED: potassium Cl 20 mEq SR tablet PO PRN (07:35)
[2025-02-07] MEDS ORDERED: potassium Cl 40MEQ/1/2NS 520ml 520 ML IV PRN (07:35)
[2025-02-07] MEDS ORDERED: potassium CL 10mEq/100ml bag 100 ML IV PRN (07:35)
[2025-02-07] MEDS ORDERED: magnesium sulf-water 4G/100mL 100 ML IV PRN (07:35)
[2025-02-07] MEDS: magnesium Cl slow-release 64mg tablet PO SCH (07:57)
[2025-02-07 12:13] LABS: ABG PO2 349.5 mmHg (83.0-108.0)
[2025-02-07 12:14] LABS: ABG PO2 306.1 mmHg (83.0-108.0)
[2025-02-07 12:14] LABS: ABG PO2 405.4 mmHg (83.0-108.0); K (ABG) 6.3 mmol/L (3.40-4.50)
[2025-02-07 12:15] LABS: ABG PO2 425.6 mmHg (83.0-108.0)
[2025-02-07 12:15] LABS: ABG PO2 399.5 mmHg (83.0-108.0)
[2025-02-07 12:24] LABS: K (ABG) 6.3 mmol/L (3.40-4.50)
[2025-02-08] VITALS (10 sets, daily range): BP systolic 112–148; BP diastolic 47–61; PULSE 73–91; RESP 15–28; TEMP 97.1–98.5; O2SAT 90–97
[2025-02-08 08:14] LABS: CREATININE 1.33 MG/DL (0.60-1.10); TOTAL CARBON DIOXIDE 27.6 MMOL/L (24-32); eCRCL 52 ML/MIN; eGFR 52 ML/MIN
[2025-02-08] MEDS: magnesium hydroxide 30ml (MOM) UD suspension PO PRN (08:26)
--- NOTE | 2025-02-08 08:29 | PROGRESS NOTE ---
Progress Note CV Providers to CC ~ Antibiotics Ordered?: No Subjective Subjective S/P AVR/ CABG x 3 POD # 4. Moving L arm much better but very little L hand movement. PT notes indicate he is quite unsteady on his feet. A bit confused at times. I discussed rehab placement with him. Objective Vitals Vital Signs Date Time Temp Pulse Resp B/P (MAP) Pulse Ox O2 Delivery O2 Flow Rate FiO2 02/08/25 06:00 79 02/08/25 06:00 98.4 15 113/58 (76) 90 Nasal Cannula 3.0 02/07/25 22:00 28 Lab Results: 02/07/25 0201 02/08/25 0727 Objective Lungs - mildly diminished at bases Heart - RRR, SR Abd/Extr - OK Incisions - CDI dsgs Coagulation Studies Laboratory Tests Test 02/04/25 08:44 02/04/25 12:04 02/04/25 14:00 Patient Sex (Coag) M Patient Height (Coag) 188cm Patient Weight (Coag) 77.0k KG Patient Blood Volume 6206 ML Pump Volume 1500 ML Total Blood Volume 7706 ML Projected Heparin Concentration 3.1 MG/KG Heparin [place] 84 Calculated Heparin Bolus 53358 UNITS Activated Coagulation Time Baseline 131 SEC (101-148) Activated Coag Time 1.70 U/mL 262 SEC (193-297) Activated Coag Time 2.84 U/mL 343 SEC (260-420) Heparin Level (COAG) 0 MG/KG Calculated Heparin Req (Hep Assay) 23156 UNITS Calculated Protamine Req (Hep Assay 0 MG Activated Clotting Time 122 SEC (101-148) Prothrombin Time 13.2 SECONDS (9.0-12.0) H INR International Normalized Ratio 1.3 INR Activated Partial Thromboplast Time 38 SECONDS (22-32) H Coagulation Comments Cardiac Rhythm: Sinus Rhythm Problem\Assessment\Plan Additional Plan POD # 4 Anemia, thrombocytopenia. AM CBC pending. Continued balance issues and L hand weakness. Will benefit from rehab placement. DC planning. Supervising Co-signing Provider: SAIRA Ramirez Feb 08, 2025 08:29
[2025-02-08 10:03] LABS: MEAN PLATELET VOLUME 10.4 FL (7.4-10.4)
[2025-02-08 10:05] LABS: RED CELL DISTRIBUTION WIDTH 18.5 % (11.5-14.5)
[2025-02-08] MEDS: magnesium citrate 296ml oral solution PO ONE (12:21)
[2025-02-09] VITALS (7 sets, daily range): BP systolic 121–129; BP diastolic 50–80; PULSE 77–92; RESP 15–30; TEMP 97.4–98.9; O2SAT 90–96
[2025-02-09 07:06] LABS: MEAN PLATELET VOLUME 10.3 FL (7.4-10.4); RED CELL DISTRIBUTION WIDTH 17.9 % (11.5-14.5)
[2025-02-09 07:18] LABS: CREATININE 1.53 MG/DL (0.60-1.10); TOTAL CARBON DIOXIDE 29.1 MMOL/L (24-32); eCRCL 45 ML/MIN; eGFR 44 ML/MIN
--- NOTE | 2025-02-09 07:23 | PROGRESS NOTE ---
Progress Note CV Providers to CC ~ Antibiotics Ordered?: No Subjective Subjective S/P AVR/ CABG x 3 POD # 5. Alert, NAD. Took his Mg citrate, no BM yet. Still very little L hand movement. Not seen by PT yesterday. Objective Vitals Vital Signs Date Time Temp Pulse Resp B/P (MAP) Pulse Ox O2 Delivery O2 Flow Rate FiO2 02/09/25 03:37 77 22 96 Nasal Cannula* 3 32 02/09/25 02:00 97.4 126/50 (75) Lab Results: 02/09/25 0629 02/09/25 0629 Objective Lungs - mildly diminished at bases Heart - RRR, SR Abd/Extr - OK Incisions - CDI Coagulation Studies Laboratory Tests Test 02/04/25 08:44 02/04/25 12:04 02/04/25 14:00 Patient Sex (Coag) M Patient Height (Coag) 188cm Patient Weight (Coag) 77.0k KG Patient Blood Volume 6206 ML Pump Volume 1500 ML Total Blood Volume 7706 ML Projected Heparin Concentration 3.1 MG/KG Heparin [place] 84 Calculated Heparin Bolus 31451 UNITS Activated Coagulation Time Baseline 131 SEC (101-148) Activated Coag Time 1.70 U/mL 262 SEC (193-297) Activated Coag Time 2.84 U/mL 343 SEC (260-420) Heparin Level (COAG) 0 MG/KG Calculated Heparin Req (Hep Assay) 68984 UNITS Calculated Protamine Req (Hep Assay 0 MG Activated Clotting Time 122 SEC (101-148) Prothrombin Time 13.2 SECONDS (9.0-12.0) H INR International Normalized Ratio 1.3 INR Activated Partial Thromboplast Time 38 SECONDS (22-32) H Coagulation Comments Cardiac Rhythm: Sinus Rhythm Problem\Assessment\Plan Additional Plan POD # 5 Will certainly benefit from rehab. Agrees to rehab placement. DC planning coordinating Orders for transfer signed. Sepsis Screening Reassessment Date: Feb 09, 2025 Supervising Co-signing Provider: SAIRA Ramirez Feb 09, 2025 07:23
[2025-02-09 07:46] LABS: EOSINOPHILS % (MANUAL) 2.0 % (0-6); LYMPHOCYTES % (MANUAL) 4.0 % (21-51); MONOCYTES % (MANUAL) 17.0 % (2-12); NEUTROPHILS % (MANUAL) 77.0 % (42-75); PLATELET ESTIMATE DECREASED
[2025-02-09 07:47] LABS: LARGE PLATELETS FEW
[2025-02-09] MEDS: magnesium sulf-water 2g/50mL 50 ML IV PRN (09:23)
[2025-02-09] MEDS: potassium Cl 20 mEq SR tablet PO PRN (09:25)
[2025-02-09] MEDS ORDERED: albumin (human) 25% 100 ML IV solution IV SCH (20:00)
--- NOTE | 2025-02-10 10:45 | DISCHARGE SUMMARY ---
DATE OF DISCHARGE: 02/09/2025 DICTATING PHYSICIAN: Eduard Alvarenga ADMITTING PHYSICIAN: Nacho Aguirre MD [employer] PH[employer] MASK TECHNICIAN: Gordon Umaña MD PREOPERATIVE DIAGNOSES: Aortic stenosis and triple vessel coronary artery disease. Also a history of hyperlipidemia, grade 3 chronic kidney disease, thrombocytopenia, and neutropenia. DISCHARGE DIAGNOSES: Aortic stenosis and triple vessel coronary artery disease. Also a history of hyperlipidemia, grade 3 chronic kidney disease, thrombocytopenia, and neutropenia, along with status post coronary artery bypass grafting x 3, with aortic valve replacement with a 23 mm Magna pericardial aortic valve prosthesis. COMPLICATIONS: Postoperatively, none. CONDITION ON DISCHARGE: Stable. PROGNOSIS: Good. SUMMARY: This is a very nice 74-year-old gentleman who has a several-year history of increasing fatigue and exertional dyspnea. He was noted to have a relatively harsh systolic flow murmur and was evaluated by echocardiography and found to have moderately severe aortic stenosis. Subsequent stress testing revealed an inferior defect. He underwent cardiac catheterization demonstrating severe triple vessel coronary artery disease. Based on these findings, the patient was recommended to undergo aortic valve replacement along with coronary artery bypass grafting. He was taken to the operating room electively on 02/04/2025. Name of the operation is coronary artery bypass grafting x 3 with the left internal mammary artery to the LAD and saphenous vein graft to the diagonal and saphenous vein graft to the distal right coronary artery along with endoscopic vein harvesting and transesophageal echocardiography, along with aortic valve replacement with a 23 mm Magna pericardial aortic valve prosthesis. Following the operation, the patient was transferred to the CICU in stable condition, where the following morning, he was awake, alert, and extubated. Of significance, he had almost complete inability to move his left arm. Head CT demonstrated no acute process but several old strokes. The patient did admit to previous upper extremity symptoms. The symptoms worsened with low blood pressure and significantly improved with elevated blood pressure. The Levophed was weaned and he was placed on some midodrine; however, his left hand weakness persisted. He also had some issues with balance and over the next few days with physical therapy, he did improve somewhat; however, he is felt to certainly benefit from further rehabilitation and physical therapy. He was felt to be stable for transfer to the rehab facility. DISCHARGE PROGRAM: As follows: Followup appointment with Dr. Aguirre's office in 2 weeks, with Dr. Umaña's office in 4 weeks, and with his primary physician in 6 weeks. ACTIVITY: As per cardiac rehab instructions. He will have physical therapy and occupational therapy. He is okay to shower daily. He should observe sternal precautions. DIET: He will be on a regular diet. MEDICATIONS: Will include amiodarone 200 mg p.o. b.i.d., tramadol 50 mg p.o. q.4 hours p.r.n. pain, midodrine 10 mg p.o. q.8 hours, Protonix 40 mg p.o. daily, multivitamin 1 p.o. daily, Lopressor 12.5 mg p.o. b.i.d., Lipitor 10 mg p.o. daily, Senna-S tablet 1 p.o. b.i.d., milk of magnesia 30 mL p.o. b.i.d. p.r.n. constipation. Eduard Aguirre MD TID: [id number] RECEIPT: [id number] KANCHAN/KEV cc: Gordon Umaña MD
== END 2025-02-09 16:15 | DRG 219 ==
LOC: PAS IN 05:31 → CICU 2S 12:01 → PCU 3S 02-07 12:18
PROVIDERS: ADMIT Thoracic Surgery (Cardiothoracic Vascular Surgery); ATTEND Thoracic Surgery (Cardiothoracic Vascular Surgery)
PROC: 02100Z9 Bypass Coronary Artery, One Artery from Left Internal Mammary, Open Approach (ICD-10-PCS; 2025-02-04)
PROC: 021109W Bypass Coronary Artery, Two Arteries from Aorta with Autologous Venous Tissue, Open Approach (ICD-10-PCS; 2025-02-04)
PROC: 06BP4ZZ Excision of Right Saphenous Vein, Percutaneous Endoscopic Approach (ICD-10-PCS; 2025-02-04)
PROC: B24BZZ4 Ultrasonography of Heart with Aorta, Transesophageal (ICD-10-PCS; 2025-02-04)
PROC: 5A1221Z Performance of Cardiac Output, Continuous (ICD-10-PCS; 2025-02-04)
PROC: 30233R1 Transfusion of Nonautologous Platelets into Peripheral Vein, Percutaneous Approach (ICD-10-PCS; 2025-02-04)
PROC: 02C Heart and Great Vessels, Extirpation (ICD-10-PCS; 2025-02-04)
PROC: 02RF08Z Replacement of Aortic Valve with Zooplastic Tissue, Open Approach (ICD-10-PCS; principal; 2025-02-04 08:02)
PROC: 30233N1 Transfusion of Nonautologous Red Blood Cells into Peripheral Vein, Percutaneous Approach (ICD-10-PCS; 2025-02-05)
DX: I35.0 Nonrheumatic aortic (valve) stenosis (principal); I63.9 Cerebral infarction, unspecified; D69.6 Thrombocytopenia, unspecified; N18.30 Chronic kidney disease, stage 3 unspecified; D62 Acute posthemorrhagic anemia; I25.10 Atherosclerotic heart disease of native coronary artery without angina pectoris; I48.91 Unspecified atrial fibrillation; E78.5 Hyperlipidemia, unspecified; E87.70 Fluid overload, unspecified; Z86.73 Personal history of transient ischemic attack (TIA), and cerebral infarction without residual deficits
CPT/HCPCS: 36415; 36430; 36600; 70450; 71045; 71046; 76376; 80048; 80053; 81001; 82330; 82435; 82803; 82947; 82948; 83036; 83735; 84100; 84132; 84295; 85007; 85018; 85025; 85027; 85347; 85610; 85730; 86885; 86900; 86901; 86920; 87081; 88300; 93005; 93312; 93325; 93880; 93970; 94002; 94010; 94664; 94760; 97110; 97116; 97161; 97162; 97530; A4615; A4618; A6213; A6258; A6449; A6590; A7000; A7048; C1751; G0378; J0131; J0169; J0282; J0690; J1250; J1644; J1815; J2003; J2060; J2151; J2250; J2270; J2274; J2704; J2919; J3373; J3375; J3480; J3490; J7030; J7040; J7050; J7120; P9016; P9035; P9045; P9047